=== PATIENT | male | born 1990 ===

== ENCOUNTER 2020-12-26 10:51 | Observation (INO) | payer SELFPAY ==
--- NOTE | ~2020-12-26 | XR_ITS ---
EXAMINATION: XR knee RT min 4V EXAM DATE: 12/26/2020 11:24 INDICATION: Draining wound to ant RT knee. warm, red, swollen x 2 days. TECHNIQUE: Right knee lateral, frontal AP, frontal PA tunnel, sunrise projections. There is no prior study for comparison. FINDINGS: No evidence osteochondral defect or joint body in the right knee joint. There are no acut e fractures or dislocations identified. There is no subcutaneous gas. There is soft tissue swelling anterior to the patella and patellar tendon. There are no radiopaque foreign bodies. No joint effu pamela. IMPRESSION: 1. Anterior soft tissue swelling. 2. No right knee joint effusion. Reviewed, dictated and finalized at location B.
[2020-12-26 10:53] VITALS: BP 161/88; PULSE 103; RESP 16; TEMP 36.8; O2SAT 100
[2020-12-26 11:07] LABS: Basophils Absolute Auto 0.1 K/mm3 (0.0-0.1); Basophils Percent Auto 0.3 % (0.2-1.2); Eosinophils Absolute Auto 0.1 K/mm3 (0-0.3); Eosinophils Percent Auto 0.3 % (0-4.4); Hematocrit 47.4 % (42.0-52.0); Hemoglobin 15.7 g/dL (14.0-18.0); Immature Granulocyte Absolute 0.23 K/mm3 (0.00-0.031); Immature Granulocyte Percent A 0.9 % (0-0.5); Lymphocytes Absolute Auto 1.71 K/mm3 (0.9-3.2); Lymphocytes Percent Auto 6.4 % (18.3-44.2); Mean Corpuscular HGB Conc 33.1 g/dl (32-36); Mean Corpuscular Hemoglobin 32.1 pg (26-34); Mean Corpuscular Volume 96.9 fl (80-100); Mean Platelet Volume 9.4 fl (7.4-10.4); Monocytes Absolute Auto 1.4 K/mm3 (0.1-0.6); Monocytes Percent Auto 5.3 % (2.6-8.5); Neutrophils Percent Auto 86.8 % (45.5-73.1); Platelet Count Result 328 k/mm3 (150-375); Red Blood Count 4.89 M/mm3 (4.6-6.20); Red Cell Distribution Width 12.2 % (11.5-14.5); White Blood Count 26.6 K/mm3 (4.5-10.0)
[2020-12-26 11:28] LABS: Alanine Aminotransferase 27 U/L (4-50); Albumin Level 5.1 g/dL (3.5-5.1); Alkaline Phosphatase 83 U/L (38-126); Anion Gap 13 mmol/L (8-16); Aspartate Amino Transferase 35 U/L (17-59); Bilirubin,Total 1.1 mg/dL (0.2-1.3); Blood Urea Nitrogen 12 mg/dL (9-20); Calcium 10.6 mg/dL (8.4-10.2); Carbon Dioxide 25 mmol/L (22-30); Chloride 101 mmol/L (98-107); Estimated CRCL calculation 97 ml/min; Estimated Glomerular Filt Rate > 60; Glucose 112 mg/dL (75-110); Potassium 3.8 mmol/L (3.4-5.0); Sodium 139 mmol/L (137-145)
[2020-12-26 11:31] LABS: CRP 21.8 mg/dL (<1.0)
[2020-12-26 12:10] VITALS: BP 133/88; PULSE 93; RESP 14; O2SAT 100
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
[2020-12-26 13:35] VITALS: BP 147/94; PULSE 84; RESP 16; O2SAT 98
[2020-12-26] MEDS: SODIUM CHLORIDE 0.9% IV 1,000 ML 999 ML IV CONT (13:44)
[2020-12-26] MEDS: TETANUS,DIPHTHERIA,AC PERTUSSIS ADULT (0.5 ML) BOOSTRIX IM (13:54)
[2020-12-26 14:20] VITALS: BMI 25.2
--- NOTE | 2020-12-26 14:24 | ADMGEN ---
This patient, John Hollis, was admitted to 3 [facility] Surg Room 315-01. Report received from ROBERTO Nugent. Patient/family oriented to hospital policies and general routines including ID bracelet, bed and alarms, visiting hours, pain management, procedures, bathroom and other care routines, personal items, smoking policy, room service/diet, and visiting hours. Information on how to activate the Rapid Response Team has been discussed. Patient/Family are encouraged to report perceived risks to care and to ask questions if they do not understand what they are told or what they should do.
[2020-12-26 14:36] VITALS: BP 153/87; PULSE 91; RESP 20; TEMP 36.9; O2SAT 100
[2020-12-26] MEDS: SODIUM CHLORIDE 0.9% IV 1,000 ML 125 ML IV CONT (15:48)
[2020-12-26] MEDS: VANCOMYCIN HCL 250 MG in DEXTROSE 5% 100 ML 100 MG IVPB (15:49)
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
[2020-12-26] MEDS: NICOTINE (*PBKC) 21 MG PATCH 1 PATCH TRANSDERM (18:31)
[2020-12-26 21:02] VITALS: O2SAT 99
[2020-12-26 21:26] VITALS: BP 138/81; PULSE 75; RESP 18; TEMP 37.4; O2SAT 99
[2020-12-27] MEDS: SODIUM CHLORIDE 0.9% IV 1,000 ML 125 ML IV CONT (01:05)
[2020-12-27 05:48] VITALS: BP 130/75; PULSE 64; RESP 18; TEMP 36.6; O2SAT 100
[2020-12-27 06:18] LABS: Basophils Absolute Auto 0.1 K/mm3 (0.0-0.1); Basophils Percent Auto 0.6 % (0.2-1.2); Eosinophils Absolute Auto 0.2 K/mm3 (0-0.3); Eosinophils Percent Auto 1.7 % (0-4.4); Hematocrit 43.2 % (42.0-52.0); Hemoglobin 14.5 g/dL (14.0-18.0); Immature Granulocyte Percent A 0.7 % (0-0.5); Lymphocytes Absolute Auto 2.55 K/mm3 (0.9-3.2); Lymphocytes Percent Auto 18.8 % (18.3-44.2); Mean Corpuscular HGB Conc 33.6 g/dl (32-36); Mean Corpuscular Hemoglobin 32.3 pg (26-34); Mean Corpuscular Volume 96.2 fl (80-100); Mean Platelet Volume 9.8 fl (7.4-10.4); Monocytes Absolute Auto 1.1 K/mm3 (0.1-0.6); Monocytes Percent Auto 7.9 % (2.6-8.5); Neutrophils Absolute Auto 9.6 K/mm3 (1.3-6.7); Neutrophils Percent Auto 70.3 % (45.5-73.1); Platelet Count Result 327 k/mm3 (150-375); Red Blood Count 4.49 M/mm3 (4.6-6.20); Red Cell Distribution Width 12.1 % (11.5-14.5); White Blood Count 13.6 K/mm3 (4.5-10.0)
[2020-12-27 06:33] LABS: Alanine Aminotransferase 20 U/L (4-50); Albumin Level 4.1 g/dL (3.5-5.1); Alkaline Phosphatase 55 U/L (38-126); Anion Gap 8 mmol/L (8-16); Aspartate Amino Transferase 24 U/L (17-59); Bilirubin,Total 0.8 mg/dL (0.2-1.3); Blood Urea Nitrogen 8 mg/dL (9-20); Calcium 9.2 mg/dL (8.4-10.2); Carbon Dioxide 25 mmol/L (22-30); Chloride 105 mmol/L (98-107); Estimated CRCL calculation 135 ml/min; Estimated Glomerular Filt Rate > 60; Glucose 84 mg/dL (75-110); Lactate Dehydrogenase 370 U/L (313-618); Potassium 3.9 mmol/L (3.4-5.0); Sodium 138 mmol/L (137-145)
[2020-12-27] MEDS: NICOTINE (*PBKC) 21 MG PATCH 1 PATCH TRANSDERM (08:22)
[2020-12-27] MEDS: ENOXAPARIN 40 MG/0.4 ML SYRINGE SUB-Q (08:22)
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
[2020-12-27 14:00] VITALS: BP 145/98; PULSE 75; RESP 18; TEMP 36.5; O2SAT 100
[2020-12-27 19:50] VITALS: PULSE 75; RESP 18; O2SAT 100
[2020-12-27 22:00] VITALS: BP 145/82; PULSE 59; RESP 18; TEMP 36.3; O2SAT 100
[2020-12-28 05:45] VITALS: BP 131/77; PULSE 51; RESP 18; TEMP 37.1; O2SAT 100
[2020-12-28 06:22] LABS: Basophils Absolute Auto 0.1 K/mm3 (0.0-0.1); Basophils Percent Auto 0.7 % (0.2-1.2); Eosinophils Absolute Auto 0.3 K/mm3 (0-0.3); Eosinophils Percent Auto 2.3 % (0-4.4); Hematocrit 46.3 % (42.0-52.0); Hemoglobin 14.9 g/dL (14.0-18.0); Immature Granulocyte Absolute 0.09 K/mm3 (0.00-0.031); Immature Granulocyte Percent A 0.7 % (0-0.5); Lymphocytes Absolute Auto 2.98 K/mm3 (0.9-3.2); Lymphocytes Percent Auto 23.5 % (18.3-44.2); Mean Corpuscular HGB Conc 32.2 g/dl (32-36); Mean Corpuscular Hemoglobin 31.8 pg (26-34); Mean Corpuscular Volume 98.9 fl (80-100); Mean Platelet Volume 9.7 fl (7.4-10.4); Monocytes Percent Auto 7.6 % (2.6-8.5); Neutrophils Absolute Auto 8.3 K/mm3 (1.3-6.7); Neutrophils Percent Auto 65.2 % (45.5-73.1); Platelet Count Result 387 k/mm3 (150-375); Red Blood Count 4.68 M/mm3 (4.6-6.20); Red Cell Distribution Width 12.3 % (11.5-14.5); White Blood Count 12.7 K/mm3 (4.5-10.0)
[2020-12-28 06:36] LABS: Anion Gap 11 mmol/L (8-16); Blood Urea Nitrogen 7 mg/dL (9-20); CRP 5.8 mg/dL (<1.0); Calcium 9.9 mg/dL (8.4-10.2); Carbon Dioxide 27 mmol/L (22-30); Chloride 103 mmol/L (98-107); Estimated CRCL calculation 119 ml/min; Estimated Glomerular Filt Rate > 60; Glucose 92 mg/dL (75-110); Potassium 3.7 mmol/L (3.4-5.0); Sodium 141 mmol/L (137-145)
[2020-12-28] MEDS: NICOTINE (*PBKC) 21 MG PATCH 1 PATCH TRANSDERM (08:04)
[2020-12-28] MEDS: ENOXAPARIN 40 MG/0.4 ML SYRINGE SUB-Q (08:05)
[2020-12-28] MEDS: SILVERGEL (ELTA) 45 ML 1 APPLIC TOPICAL (09:54)
[2020-12-28] MEDS: LIDO 1%/EPINEPHRINE 1:100,000 20 ML VIAL 3 ML INFILTRATE (11:00)
[2020-12-28] MEDS: HYDROcodone/acetaminophen (*CRX) 5-325 MG TABLET 1 TAB PO (11:28)
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
--- NOTE | 2020-12-28 11:55 | W.PM.PROC2 ---
Procedure Note - Detailed Date of Procedure 12/28/20 Pre-op Diagnosis Cutaneous abscess of right knee Post-op Diagnosis same Procedure Performed Incision and drainage of simple right knee abscess Surgeon LILLI Tierney Integration Technician ROBERTO Gruber Anesthesia local (1% lidocaine with epinephrine, 1 cc injected) Findings Soft tissue abscess of lateral right knee Description of Procedure The patient was placed in the supine position. The site of the abscess for required I&D was identified. Following this, the area was prepped with iodine and draped in usual sterile fashion. Then, local anesthetic was infiltrated directly over the area of swelling and abscess formation. After allowing the local anesthetic to work, a direct 1cm incision was made with an #11 blade scalpel over the fluctuant area of the abscess, connecting the two small openings. Immediate flow of purulent drainage was noted. All purulent drainage was expressed from the abscess. The abscess cavity was probed and all loculation broken up. Following this, silver gel was applied to opening and the area was packed with 1/4 inch iodoform Nu Gauze. This was then covered with 4x4s, kerlex gauze, and tape. The patient tolerated the procedure well. Drains No Packing Yes (1/4 iodoform packing) Complications No immediate complications Condition stable Disposition no change
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
[2020-12-28 13:25] VITALS: BP 147/75; PULSE 72; RESP 16; TEMP 36.7; O2SAT 99
== END 2020-12-28 14:20 | disposition home or self-care (01) ==
LOC: ANHED 13:25 → ANH3MEDSUR 13:56
PROVIDERS: Emergency Medicine; Physician Assistant; Admitting Provider Internal Medicine; Emergency Provider Nurse Practitioner; Visit Provider Family Medicine
DX: L02.415 Cutaneous abscess of right lower limb (principal); L03.115 Cellulitis of right lower limb; B95.62 Methicillin resistant Staphylococcus aureus infection as the cause of diseases classified elsewhere; R03.0 Elevated blood-pressure reading, without diagnosis of hypertension; F17.210 Nicotine dependence, cigarettes, uncomplicated; Z90.49 Acquired absence of other specified parts of digestive tract
CPT/HCPCS: 10060; 36415; 73564; 80048; 80053; 80202; 83615; 83735; 85025; 86140; 87040; 87070; 87147; 87186; 87205; 90471; 90715; 96361; 96365; 96366; 96367; 96372; 96375; 99285; A9270; G0378; G0379; J0131; J1650; J2543; J3370; J7030